=== PATIENT | male | born 1945 | race Caucasian/White ===

== ENCOUNTER 2022-03-05 16:47 | Emergency (ER) | payer MEDICARE, SELFPAY ==
--- NOTE | 2022-03-05 16:55 | ED.DIZZY ---
HPI - Dizziness General Chief Complaint: Unspecified Stated Complaint: Light Headed Time Seen by Provider: 03/05/22 16:55 Source: patient and RN notes reviewed History of Present Illness HPI Narrative: Patient is 76-year-old male who presents the urgent care with complaints of the feeling like he is floating . Patient states it comes and goes and he typically has this type of symptom when he has an allergy. Patient denies of any upper respiratory complaint such as nasal congestion, fever, ear pain or sore throat. Patient states that he had this floating like feeling whenever he was positive for COVID back in November and was concerned. Patient denies of any cough, shortness of breath or chest pain. Denies of any history of CVA or cardiac related issues. Patient has been working outside today, ambulating as normal. States that he has been getting enough to drink. No other acute complaints. No acute distress noted. Patient aware of the plan of care. Some parts of this dictation were generated by voice recognition software and may contain typographical and/or grammatical inaccuracies. Related Data Home Medications Medication Instructions Recorded Confirmed carvedilol 6.25 mg tablet 6.25 mg PO DAILY 03/05/22 03/05/22 lisinopril 20 mg tablet 20 mg PO DAILY 03/05/22 03/05/22 pravastatin 40 mg tablet 40 mg PO DAILY 03/05/22 03/05/22 Allergies Allergy/AdvReac Type Severity Reaction Status Date / Time No Known Allergies Allergy Verified 03/05/22 17:05 Review of Systems Review of Systems: CONSTITUTIONAL: Denies fever, chills, or sweats. EYES: Denies visual changes, redness, or discharge. ENT: Denies rhinorrhea, congestion, sore throat, or otalgia. CARDIOVASCULAR: Denies chest pain, palpitations, or edema. RESPIRATORY: Denies cough or dyspnea. GASTROINTESTINAL: Denies abdominal pain, nausea, vomiting, or diarrhea. GENITOURINARY: Denies dysuria or hematuria. SKIN: Denies rash or itching. MUSCULOSKELETAL: Denies back pain, joint pain, or myalgia. NEUROLOGIC: Denies headache, numbness, or weakness. Reports of feeling like he is floating All other systems reviewed are negative, except as documented in HPI. PMFSH Comments At the time of my signature, I reviewed and agree with the nursing past medical, surgical, social, and family history. There is no relevant family history pertinent to the patient complaint. Exam Narrative: GENERAL: This is a well-nourished, well-developed patient, in no apparent distress. HEAD: normocephalic, atraumatic. EYES: PERRL. Sclera clear/white. Vision is grossly intact. EARS: External ears normal, auditory canals clear and without drainage, TMs normal without perforation. Hearing grossly intact. NOSE: External nose normal with no obvious nasal discharge, nares without redness, no rhinorrhea. THROAT: Mucous membranes moist, posterior pharynx clear. Mild postnasal drainage NECK: Neck supple, non-tender without lymphadenopathy, masses or thyromegaly. CARDIOVASCULAR: Regular rate and rhythm RESPIRATORY: Clear to auscultation. Breath sounds equal bilaterally. No wheezes, rales, or rhonchi. Slightly diminished bibasilar SKIN: warm, intact with no suspicious lesions or rash, good texture and turgor. NEURO: awake, alert, and oriented to person, place and time. There were no obvious focal neurologic abnormalities. EXTREMITIES: No clubbing, cyanosis, or edema. Course Course Level of Care: Express Care Visit Vital Signs Vital signs: Vital Signs Temperature 97.5 F L 03/05/22 16:56 Pulse Rate 64 03/05/22 16:56 Respiratory Rate 20 03/05/22 16:56 Blood Pressure 154/87 H 03/05/22 16:56 Pulse Oximetry 98 03/05/22 16:56 Oxygen Delivery Room Air 03/05/22 16:56 Temperature 97.5 F L 03/05/22 16:56 Pulse Rate 64 03/05/22 16:56 Respiratory Rate 20 03/05/22 16:56 Blood Pressure 154/87 H 03/05/22 16:56 Pulse Oximetry 98 03/05/22 16:56 Oxygen Delivery Room Air 03/05/22 16:56
[2022-03-05 16:56] VITALS: BP 154/87; PULSE 64; RESP 20; TEMP 36.4; O2SAT 98
== END 2022-03-05 17:37 | disposition home or self-care (01) ==
PROVIDERS: Emergency Provider Nurse Practitioner Family
DX: Z71.1 Person with feared health complaint in whom no diagnosis is made (principal); R42 Dizziness and giddiness; Z86.16 Personal history of COVID-19; Z20.822 Contact with and (suspected) exposure to COVID-19
CPT/HCPCS: 87426; 99213; C9803; G0463

== ENCOUNTER 2023-08-26 19:04 | Emergency (ER) | payer MEDICARE, SELFPAY ==
[2023-08-26] VITALS (23 sets, daily range): BP systolic 126–192; BP diastolic 53–81; PULSE 61–75; RESP 14–23; TEMP 36.4–36.6; O2SAT 86–99
--- NOTE | ~2023-08-26 | CT_ITS ---
EXAMINATION: CTA chest PE protocol DATE: 08/26/2023 21:36 INDICATION: elevated ddimer TECHNIQUE: Computed tomography angiography (CTA) of the chest was performed with 100 mL Omnipaque-350 intravenous contrast timed to evaluate the pulmonary arteries. Coronal maximum intensity projection 3D-reconstructions were created by the technologist. The dose-length product (DLP) was 910.90 mGy-cm. Automated exposure control and iterative reconstruction technique were employed. COMPARISON: None. FINDINGS: Lung parenchyma and airways: Mild septal thickening. Dependent groundglass opacities. 5 mm dependent density in the lower trachea. Pleura: Unremarkable. Thoracic inlet, axillae and chest wall: Unremarkable. Thoracic aorta: Ascending aortic ectasia. Moderate arch calcification. Mediastinum: Normal. Heart and pericardium: Cardiomegaly. Aortic valve replacement. Coronary artery calcifications: Mild. Upper abdomen: No significant finding. Bones: Posterior dislocation of the bilateral shoulders. Impaction fractures of the anterior aspects of the proximal humeri with fracture lines that extend into the humeral heads. Pulmonary arteries: Study quality: Exam is significantly limited by beam hardening artifact, motion a rtifact, and suboptimal contrast bolus. No central pulmonary emboli detected. IMPRESSION: Limited evaluation of the segmental and subsegmental pulmonary arteries. No CT evidence of acute cent ral or interlobar pulmonary embolus. Mild interstitial edema. Bilateral posterior glenohumeral dislocations with humeral head fractures. Reviewed, dictated and finalized at location K. IMPRESSION: Limited evaluation of the segmental and subsegmental pulmonary arteries. No CT evidence of acute central or interlobar pulmonary embolus. Mild interstitial edema. Bilateral posterior glenohumeral dislocations with humeral head fractures.
--- NOTE | ~2023-08-26 | XR_ITS ---
EXAMINATION: XR chest 1V portable Exam Date/Time: 08/26/2023 20:00 CDT HISTORY: syncope Comparison: None. RESULT: Lines, tubes, and devices: Cardiac valve replacement. Intact sternotomy wires. Lungs and pleura: Mild diffuse reticular opacities. Calcified granuloma. Streaky patchy opacities in the bilateral lower lungs, greater on the left. Minimal left costophrenic angle blunting. Cardiomediastinal silhouette: Stable. Other: No acute osseous or upper abdominal finding. IMPRESSION: Mild interstitial edema. Bibasilar subsegmental atelectasis/consolidation. Possible trace left pleura l effusion. Reviewed, dictated and finalized at location K. IMPRESSION: Mild interstitial edema. Bibasilar subsegmental atelectasis/consolidation. Poss ible trace left pleural effusion.
--- NOTE | ~2023-08-26 | XR_ITS ---
EXAM: XR shoulder RT min 2V DATE: 08/26/2023 20:09 HISTORY: right shoulder pain . COMPARISON: None available. FINDINGS: Normal mineralization. AC joint is aligned. Posterior dislocation of the right glenohumera l joint. Irregular appearance to the medial aspect of the humeral head likely the so-called trough si gn from anterior impaction fracture. A glenoid fracture is not excluded. Small ossific fragments in t he inferior joint recess. No lytic or blastic lesion. Joint spaces are maintained. No erosion or annabel osteal change. Soft tissues within normal limits. IMPRESSION: Posterior right shoulder dislocation. Likely impaction fracture of the humeral head ( tro ugh sign). Reviewed, dictated and finalized at location K. IMPRESSION: Posterior right shoulder dislocation. Likely impaction fracture of the humeral head ( trough sign).
--- NOTE | ~2023-08-26 | XR_ITS ---
EXAM: XR shoulder LT min 2V DATE: 08/26/2023 20:09 HISTORY: left shoulder pain . COMPARISON: None available. FINDINGS: Normal mineralization. AC joint is aligned. Posterior dislocation of the left glenohumeral joint. Irregular appearance to the medial aspect of the humeral head likely the so-called trough sig n from anterior impaction fracture. A glenoid fracture is not excluded. No lytic or blastic lesion. N o erosion or periosteal change. Soft tissues within normal limits. IMPRESSION: Posterior left shoulder dislocation. Likely impaction fracture of the humeral head ( trou gh sign). Reviewed, dictated and finalized at location K. IMPRESSION: Posterior left shoulder dislocation. Likely impaction fracture of t he humeral head ( trough sign).
--- NOTE | ~2023-08-26 | CT_ITS ---
EXAMINATION: CT brain wo con DATE: 08/26/2023 20:14 INDICATION: possible TIA . TECHNIQUE: Computed tomography (CT) of the head was performed without intravenous contrast. The mA wa s adjusted according to patient size. Iterative reconstruction technique was employed. The dose-lengt h product was 908.00 mGy-cm. COMPARISON: None. FINDINGS: No acute intracranial hemorrhage or extra-axial fluid collection. No hydrocephalus, mass, or herniation. No acute ischemic infarct. Unremarkable dural venous sinus attenuation. No acute osseous abnormality. Mucosal thickening and retention cyst/polyp in the right maxillary sinus, nodular mucosal thickening in the left sphenoid sinus and multiple ethmoid air cells, the remaining aerated spaces are clear. Atherosclerotic intracranial arterial calcifications. IMPRESSION: No acute intracranial process. Reviewed, dictated and finalized at location K.
--- NOTE | ~2023-08-26 | CT_ITS ---
EXAMINATION: CT cervical spine wo con DATE: 08/27/2023 09:02 INDICATION: Fall with head injury TECHNIQUE: Computed tomography (CT) of the cervical spine was performed without intravenous contrast. Automated exposure control and iterative reconstruction technique were employed. The dose-length pro duct was 414.77 mGy-cm. COMPARISON: None FINDINGS: 10 degree cervical dextrocurvature. 2 mm anterolisthesis C4 on C5, 1 mm retrolisthesis C6 on C7. Vert ebral body heights are normal. No fracture. Severe disc height loss with prominent degenerative endpl ate changes and severe uncovertebral osteoarthritis at C5-C6 and C6-C7. Moderate disc height loss at C4-C5 and C7-T1 and mild disc height loss at C2-C3 and C3-C4. There is additional mild right-sided an d moderate left-sided uncovertebral osteoarthritis at C2-C3 through C4-C5. There is severe facet oste oarthritis on the left at C2-C3 through C4-C5 and bilaterally at C7-T1. Mild to moderate facet osteoa rthritis the remaining cervical levels. Disc bulges or disc osteophyte complexes at C2-C3 through C6- C7 resulting in multilevel mild central canal stenosis most prominent at C5-C6 and C6-C7. There is al so multilevel bilateral neural foraminal stenosis, moderate to severe on the right at C5-C6 and C6-C7 , moderate severity on the left at C3-C4 and C4-C5 and mild at many of the remaining cervical neural foramina. Cervical soft tissues are unremarkable. IMPRESSION: 1. 10 degrees cervical dextrocurvature with severe lower cervical predominant spondylosis. No acute o sseous abnormality. Reviewed, dictated and finalized at location L. IMPRESSION: 1. 10 degrees cervical dextrocurvature with severe lower cervical predominant s pondylosis. No acute osseous abnormality.
--- NOTE | 2023-08-26 19:07 | ECG_ITS ---
Measurements Intervals [place] Rate: 61 P: 31 NV: 225 QRS: -1 QRSD: 106 T: 55 QT: 404 QTc: 410 Interpretive Statements SINUS RHYTHM WITH FIRST DEGREE AV BLOCK BASELINE ARTIFACT- I, II, AVR, V1 BORDERLINE ECG NO PREVIOUS ECG AVAILABLE FOR COMPARISON Electronically Signed On 08-27-2023 6:44:29 CDT by Luis Felipe Livingston D.O.
--- NOTE | 2023-08-26 19:12 | ED.EXTPRO ---
HPI - Extremity Problem General Chief complaint: Syncope Stated complaint: chest pain Time Seen by Provider: 08/26/23 19:07 Source: patient Mode of arrival: ambulatory Limitations: no limitations History of Present Illness HPI Narrative: patient is 78-year-old male with a significant past medical history that presents today for syncope. Patient Apparently was getting fluid and a syncopal episode. He is not sure exactly what happened he still little bit confused. He is complaining of bilateral shoulder pain that is pretty severe. His NIH scale would only be about a 2 because his arms but they are also Very painful. He has no history of stroke. He does have a history of a bypass surgery. He does not medications he takes. His is on the way to get more information. MD Complaint: joint paint (bilateral shoulders ) Onset (ago): minute(s) Pain Consistency: constant Location: left and right Severity scale (1-10): 4 Quality: aching and sharp Radiation: none Relieving factors: nothing Exacerbating factors: nothing Associated symptoms: denies other symptoms Related Data Home Medications Medication Instructions Recorded Confirmed carvedilol 6.25 mg tablet 6.25 mg PO DAILY 03/05/22 03/05/22 lisinopril 20 mg tablet 20 mg PO DAILY 03/05/22 03/05/22 pravastatin 40 mg tablet 40 mg PO DAILY 03/05/22 03/05/22 Allergies Allergy/AdvReac Type Severity Reaction Status Date / Time No Known Allergies Allergy Verified 03/05/22 17:05 Review of Systems Review of Systems: All systems reviewed & are unremarkable except as noted in HPI and below Constitutional: Constitutional: Reports as per HPI Eyes: Eyes: Reports as per HPI ENT: Reports system reviewed and no additional complaints, except as documented Cardiovascular: Cardiovascular: Reports no additional cardiovascular complaints Respiratory: Respiratory: Reports no additional respiratory complaints Gastrointestinal: Gastrointestinal: Reports no additional gastrointestinal complaints Musculoskeletal: Musculoskeletal: Reports as per HPI Integumentary/Breasts: Skin/Breast: Reports system reviewed and no additional complaints, except as docu Neurologic: Reports system reviewed and no additional complaints, except as documented Psychiatric: Psychiatric: Reports no additional psychiatric complaints Endocrine: Endocrine: Reports no additional endocrine complaints Hematologic/Lymphatic: Hematologic/Lymphatic: Reports no additional hematologic/lymphatic complaints Allergic/Immunologic: Allergic/Immunologic: Reports no additional allergic/immunologic complaints Exam Const: General: healthy appearing Nutritional Appearance: well nourished Orientation/consciousness: patient oriented x3 HENMT: Head: normal to inspection Ears: external ears normal Face/Nose/Sinus: Normal external nose present Eyes: Conjunctivae: conjunctivae normal Pupils: Equal, round and reactive pupils present EOM: EOMs intact bilaterally Neck: Neck: normal visual inspection Chest: Chest palpation & inspection: normal inspection of the chest Resp: Effort & Inspection: normal respiratory effort Auscultation: clear to auscultation bilaterally Cardio: Rate: regular rate Rhythm: regular rhythm GI: GI Palp: Yes Soft to palpation Back/Spine/Pelvis: Back: no CVA tenderness Skin: General skin exam: normal color Rashes: no rashes Wounds: no wounds Neuro: General: patient oriented x3 and moves all extremities Extrem: General: normal to inspection, no clubbing, cyanosis or edema and no pedal edema Psych: Mental Status: mental status grossly normal Course Reevaluation(s) Reevaluation #1: Patient had a whitness seizure. Given 2mg IV ativan. Seizure stopped and he was stable. Date: 08/26/23 Time: 20:16 Reevaluation #2: Darrel transfer patient to [facility] accepting physician Dr. Bearden. Date: 08/26/23 Time: 23:49 Vital Signs Vital signs: Vital Signs Temperature 97.5
[2023-08-26 19:21] LABS: Basophils Absolute Auto 0.01 K/mm3 (0.00-0.10); Basophils Percent Auto 0.1 % (0.0-1.0); Eosinophils Absolute Auto 0.24 K/mm3 (0.02-0.50); Eosinophils Percent Auto 2.5 % (1.0-6.0); Hematocrit 34.7 % (37.0-46.0); Hemoglobin 12.5 g/dL (12.4-15.3); Immature Granulocyte Absolute 0.07 K/mm3 (0.00-0.00); Immature Granulocyte Percent A 0.7 % (0.0-0.0); Lymphocytes Absolute Auto 1.81 K/mm3 (1.10-4.50); Lymphocytes Percent Auto 18.5 % (18.0-42.0); Mean Corpuscular Hemoglobin 29.5 pg (27.0-31.0); Mean Corpuscular Volume 81.8 fL (78.0-102.0); Mean Platelet Volume 9.6 fl (8.7-11.0); Monocytes Percent Auto 5.1 % (2.0-11.0); Neutrophils Absolute Auto 7.2 K/mm3 (1.7-7.2); Neutrophils Percent Auto 73.1 % (50.0-70.0); Platelet Count Result 159 K/mm3 (150-420); Red Blood Count 4.24 M/mm3 (4.70-6.10); Red Cell Distribution Width 11.2 % (11.6-14.4); White Blood Count 9.8 K/mm3 (4.8-10.8)
[2023-08-26 19:53] LABS: Alanine Aminotransferase 29 U/L (16-63); Albumin Level 3.5 g/dL (3.4-5.0); Alkaline Phosphatase 58 U/L (46-116); Anion Gap 12 mmol/L (8-16); Aspartate Amino Transferase 25 U/L (15-37); Bilirubin,Total 0.5 mg/dL (0.00-1.00); Blood Urea Nitrogen 26 mg/dL (7-18); Calcium 8.1 mg/dL (8.5-10.1); Carbon Dioxide 21 mmol/L (21-32); Chloride 88 mmol/L (98-108); Estimated CRCL calculation 53 ml/min; Estimated Glomerular Filt Rate > 60; Glucose 138 mg/dL (70-99); NT Pro B Type Natriuretic Pept 912 pg/mL (0-450); Osmolality Calculated 258 mOsm/kg (285-295); Potassium 4.6 mmol/L (3.5-5.1); Sodium 121 mmol/L (136-145); Total Protein 6.4 g/dL (6.4-8.2); Troponin I 7.2 ng/L (0.00-60.4)
[2023-08-26 20:09] LABS: D Dimer 2.69 mg/L (0.19-0.50)
--- NOTE | 2023-08-26 20:15 | PC.NURSE ---
Patient having seizure-like activity at this time with snoring respirations and drooling. Patient eyes dilated and patient actively holding BUE up during seizure, which he told ED staff he could not do when he arrived. ERP and ED staff at patient bedside. IV started, patient suctioned and given medication per ERP verbal bedside order. RN monitoring.
[2023-08-26] MEDS: LORazepam INJ (*CRX) 2 MG/ML VIAL IV PUSH (20:16)
[2023-08-26] MEDS: SODIUM CHLORIDE 0.9% IV 1,000 ML 999 ML IV CONT (20:23)
--- NOTE | 2023-08-26 21:07 | PC.NURSE ---
patient family at bedside (spouse and daughter) Dr. De Leon speaking with them, providing update. patient resting however having periods of restlessness, moving all extremities and head/body on stretcher. RN monitoring. patient connected to more stable/sticky pulse ox as patient has bilateral osteoarthritis and unaable to keep pulse ox on fingers. bp improving.
--- NOTE | 2023-08-26 21:44 | PC.NURSE ---
patient returned from imaging, awaiting ct results. spouse and daughter remain at bedside. RN monitoring.
[2023-08-26 21:52] LABS: SARS-CoV-2 RNA PCR Negative (Negative)
[2023-08-26 21:53] LABS: Influenza A QL RT-PCR Negative (Negative); Influenza B QL RT-PCR Negative (Negative); RSV RNA, RT-PCR Negative (Negative)
[2023-08-26] MEDS: levETIRAcetam 500MG/NACL 100ML 500 MG/100 ML BAG 400 MG IVPB (22:03)
--- NOTE | 2023-08-26 22:11 | PC.NURSE ---
iv med infusing per order. family at bedside. update provided. patient placed on 3 lpm oxygen via nasal cannula at this time as o2 sats 88-92 on RA. patient resting. RN monitoring.
[2023-08-26] MEDS: MORPHINE SULFATE (*CRX) 4 MG/ML INJ IV PUSH (23:15)
--- NOTE | 2023-08-26 23:22 | PC.NURSE ---
patient update provided by Dr. De Leon at this time. patient medicated for pain, see MAR. patient spouse and daughter at bedside. RN awaiting return call from [facility] access line regarding patient transfer.
--- NOTE | 2023-08-26 23:49 | PC.NURSE ---
patient accepted to [facility] [place], triage information provided to transfer RN, patient awaiting room assignment at transfer facility. RN monitoring.
[2023-08-27] VITALS (30 sets, daily range): BP systolic 117–150; BP diastolic 46–80; PULSE 61–75; RESP 13–27; TEMP 36.5–37.1; O2SAT 90–100
--- NOTE | 2023-08-27 00:59 | PC.NURSE ---
THIS RN OFF UNIT FOR RAPID RESPONSE, MARLENE RADFORD MONITORING PATIENT AT THIS TIME.
--- NOTE | 2023-08-27 01:00 | PC.NURSE ---
Pt repositioned in bed c pillows for comfort, light dimmed and pt callbell at side.
[2023-08-27] MEDS: MORPHINE SULFATE (*CRX) 2 MG/ML INJ IV PUSH ×3 (03:17→06:08)
--- NOTE | 2023-08-27 03:17 | PC.NURSE ---
PATIENT MEDICATED FOR PAIN, SEE MAR. FAMILY AT BEDSIDE.
--- NOTE | 2023-08-27 03:40 | PC.NURSE ---
PATIENT FAMILY AT BEDSIDE. UPDATE PROVIDED. PATIENT GIVEN ICE WATER PER REQUEST. VSS. AWAITING BED AT [facility].
--- NOTE | 2023-08-27 04:38 | PC.NURSE ---
PATIENT DAUGHTER - SURJIT [phone] AND TRUMAN - [phone] LEAVING AT THIS TIME TO GO HOME TO REST. PATIENT MOVED TO HOSPITAL BED FOR COMFORT, REMAINS AWAITING BED AT [facility].
--- NOTE | 2023-08-27 05:39 | PC.NURSE ---
PATIENT RESTING PEACEFULLY ON THE HOSPITAL BED. RN MONITORING. PATIENT REMAINS CLOSE TO NURSES STATION FOR MONITORING.
--- NOTE | 2023-08-27 06:10 | PC.NURSE ---
pt medicated for pain, see MAR. VSS. RN monitoring. call light within reach.
--- NOTE | 2023-08-27 06:50 | PC.NURSE ---
PATIENT BLADDER SCANNED HE HAS NOT VOIDED RECENTLY. PATIENT THEN WAS ABLE TO USE URINAL WITH RN ASSIST WITH OUTPUT OF 600 ML OF YELLOW CLEAR URINE.
--- NOTE | 2023-08-27 07:17 | PC.NURSE ---
PATIENT REPORT GIVEN TO DAY SHIFT MARLENE MORENO FOR CONTINUITY OF CARE.
--- NOTE | 2023-08-27 07:48 | PC.NURSE ---
Pt is A&O times 4. Pt aware that he is awaiting a room assignment at [facility]. 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 Pt didn't recall any of this information. Pt has no pain at this time. Pt repositioned in bed. Pt has no complaints or further questions at this time.
[2023-08-27 09:06] LABS: Blood Urea Nitrogen 26 mg/dL (7-18); Carbon Dioxide 24 mmol/L (21-32); Glucose 134 mg/dL (70-99)
[2023-08-27 09:10] LABS: Anion Gap 7 mmol/L (8-16); Chloride 89 mmol/L (98-108); Estimated CRCL calculation 56 ml/min; Estimated Glomerular Filt Rate > 60; Osmolality Calculated 256 mOsm/kg (285-295); Potassium 4.1 mmol/L (3.5-5.1)
--- NOTE | 2023-08-27 09:16 | PC.NURSE ---
Pt made aware he is no longer going to [facility], that he is now awaiting at bed at [facility].
[2023-08-27 09:19] LABS: Calcium 7.9 mg/dL (8.5-10.1)
[2023-08-27 09:21] LABS: Sodium 120 mmol/L (136-145)
[2023-08-27] MEDS: SODIUM CHLORIDE 0.9% IV 1,000 ML 60 ML IV CONT (09:51)
--- NOTE | 2023-08-27 10:03 | PC.NURSE ---
Report given to AZUL ROSARIO at [facility].
[2023-08-27] MEDS: ONDANSETRON INJ 4 MG/2 ML VIAL IV PUSH (10:31)
[2023-08-27] MEDS: HYDROmorphone HCL INJ (*CRX) 2 MG/ML VIAL 0.5 MG IV PUSH (10:31)
== END 2023-08-27 10:50 | disposition short-term general hospital (02) ==
PROVIDERS: Family Medicine; Emergency Provider Emergency Medicine
DX: S42.392A Other fracture of shaft of left humerus, initial encounter for closed fracture (principal); R56.9 Unspecified convulsions; X58.XXXA Exposure to other specified factors, initial encounter; Z20.822 Contact with and (suspected) exposure to COVID-19
CPT/HCPCS: 36415; 70450; 71045; 71275; 72125; 73030; 80048; 80053; 83880; 84484; 85025; 85380; 87637; 93005; 96361; 96365; 96375; 96376; 99285; A4565; J1170; J1953; J2060; J2270; J2405; J7030; Q9967